=== PATIENT | male | born 1970 | race Caucasian/White ===

== ENCOUNTER 2018-12-13 23:22 | Emergency (ER) | payer MEDICAID ==
[~2018-12-13] VITALS: Ht 177.8 cm; Wt 119.3 kg
[2018-12-13 23:50] VITALS: Ht 177.8 cm; Wt 119.3 kg
[2018-12-14 02:42] LABS: UA SPECIFIC GRAVITY >=1.030 (1.005-1.035); microscopic required? YES; urine erythrocyte NEGATIVE (NEGATIVE)
[2018-12-14 02:46] LABS: BASOPHIL % 0.2 % (0-2); PLATELET COUNT 311 x10^3mcL (130-400); RED CELL DISTRIBUTION WIDTH 13.1 % (11.5-14.5)
[2018-12-14 03:02] LABS: CALCIUM 9.4 mg/dL (8.5-10.1); CARBON DIOXIDE 31.5 mmol/L (21-32); CHLORIDE SERUM 104 mmol/L (98-107); CREATININE SERUM 0.8 mg/dL (0.7-1.3); GFR1 > 60 mL/min; GLUCOSE SERUM 121 mg/dL (74-106); POTASSIUM SERUM 4.2 mmol/L (3.5-5.1); SODIUM SERUM 144 mmol/L (136-145)
[2018-12-14 03:07] LABS: ALBUMIN 4.2 g/dL (3.4-5.0); ALKALINE PHOSPHATASE 92 U/L (46-116); ALT/SGPT 37 U/L (16-63); AST/SGOT 39 U/L (15-37); BILIRUBIN TOTAL 0.63 mg/dL (0.20-1.00); TOTAL PROTEIN, SERUM 8.1 g/dL (6.4-8.2)
[2018-12-14 04:10] VITALS: BP 132/90
== END 2018-12-14 04:10 | disposition home or self-care (01) ==
LOC: ED 23:22
PROVIDERS: Emergency Medicine
DX: M79.605 Pain in left leg (principal); M54.5 Low back pain; Z88.8 Allergy status to other drugs, medicaments and biological substances
CPT/HCPCS: 36415

== ENCOUNTER 2020-11-10 14:48 | Emergency (ER) | payer OTHER | END 2020-11-10 16:09 | LOC: ED 14:48 | DX: Z02.89 Encounter for other administrative examinations (principal) ==

== ENCOUNTER 2020-11-10 14:48 | Emergency (ER) | payer MEDICAID ==
[~2020-11-10] VITALS: Ht 180.3 cm; Wt 113.4 kg
[2020-11-10 14:49] VITALS: Ht 180.3 cm; Wt 113.4 kg
[2020-11-10 15:35] VITALS: BP 140/90
== END 2020-11-10 16:09 ==
LOC: ED 14:48
DX: M25.511 Pain in right shoulder (principal); I10 Essential (primary) hypertension; E11.9 Type 2 diabetes mellitus without complications; Z98.890 Other specified postprocedural states; Z88.8 Allergy status to other drugs, medicaments and biological substances; Z86.73 Personal history of transient ischemic attack (TIA), and cerebral infarction without residual deficits
CPT/HCPCS: J1885